=== PATIENT | female | born 1985 | race Caucasian/White ===

== ENCOUNTER → 2017-03-30 | Outpatient (REF) ==
[~2017-03-30] MED LIST: CLARITIN 1010 MG/TAB PO; IBU600 MG PO; MOTRIN 600600 MG/TAB PO; PERCOCET 325 MG1 TA2 PO; PRENATAL1 TA7 PO; ZOLOFT 100MG100 MG PO; ZOLOFT 50MG50 MG PO; ZOVIRAX400 MG PO
== END ==
LOC: ZLAB.WCH 17:32
DX: Z01.89 Encounter for other specified special examinations (principal)